=== PATIENT | female | born 1955 | race Caucasian/White ===

== ENCOUNTER 2022-12-10 14:03 | Inpatient (IN) | payer MEDICARE, MEDICAID ==
[~2022-12-10] VITALS: Ht 170.2 cm; Wt 89.7 kg
[2022-12-10] MEDS ORDERED: dexamethasone sod phosphate 10mg/ml inj IV STA (14:27)
[2022-12-10] MEDS ORDERED: ipratropium/albuterol 3ml nebule NEB ONE (14:30)
[2022-12-10] MEDS ORDERED: normal saline 1000ml 1,000 ML IV ONE (14:30)
[2022-12-10 15:09] VITALS: PULSE 102; PULSE 103; RESP 26; O2SAT 94; O2SAT 95
[2022-12-10 15:16] LABS: BASOPHILS # (AUTO) 0.1 X10'3 (0-0.2); BASOPHILS % (AUTO) 0.4 % (0-1); EOSINOPHILS % (AUTO) 0 % (0-6); HEMATOCRIT 38.9 % (35.0-45.0); HEMOGLOBIN 12.9 g/dl (12.0-16.0); LYMPHOCYTES # (AUTO) 1.5 X10'3 (1.1-4.8); LYMPHOCYTES % (AUTO) 9.1 % (21-51); MEAN CORPUSCULAR HEMOGLOBIN 30.8 PG (27.0-31.0); MEAN CORPUSCULAR HGB CONC 33.2 g/dL (33.0-36.5); MEAN CORPUSCULAR VOLUME 92.6 FL (78-98); MEAN PLATELET VOLUME 8.6 FL (7.4-10.4); MONOCYTES # (AUTO) 0.9 X10'3 (0-0.9); MONOCYTES % (AUTO) 5.5 % (2-12); NEUTROPHILS # (AUTO) 13.9 X10'3 (1.8-7.7); PLATELET COUNT 192 X10'3 (140-440); RED CELL DISTRIBUTION WIDTH 15.4 % (11.5-14.5); WHITE BLOOD COUNT 16.3 X10'3 (4.5-11.0)
--- NOTE | 2022-12-10 15:25 | NUR ---
Notified by lab that blood hemolyzed, attempted to redraw blood via IV unsuccesful. Lab notified and will come redraw.
--- NOTE | 2022-12-10 15:46 | NUR ---
US at bedside
--- NOTE | 2022-12-10 15:52 | NUR ---
lab at bedside for redraw.
[2022-12-10 16:10] LABS: BILIRUBIN,URINE NEGATIVE (Neg); CLARITY,URINE CLOUDY (Clear); COLOR,URINE STRAW (Yellow); GLUCOSE, URINE NEGATIVE (Neg); KETONES,URINE NEGATIVE (Neg); LEUKOCYTE ESTERASE ,URINE MODERATE (Neg); NITRITES, URINE POSITIVE (Neg); OCCULT BLOOD,URINE MODERATE (Neg); PROTEIN,URINE 30 mg/dl (Neg); UROBILINOGEN,URINE 0.2 E.U/dL (0.2-1.0)
[2022-12-10 16:16] LABS: ALANINE AMINOTRANSFERASE 15 U/L (12-78); ALBUMIN 2.9 G/DL (3.4-5.0); ALBUMIN/GLOBULIN RATIO 0.8 (1.1-1.5); ALKALINE PHOSPHATASE 52 IU/L (46-116); ANION GAP 10 (8-16); ASPARTATE AMINO TRANSFERASE 13 U/L (10-37); BILIRUBIN,TOTAL 0.5 MG/DL (0.1-1.0); BLOOD UREA NITROGEN 21 MG/DL (7-18); BUN/CREATININE RATIO 13.5 (10.0-20.0); CALCIUM 8.9 MG/DL (8.5-10.1); CHLORIDE 104 MMOL/L (99-107); CREATININE 1.55 MG/DL (0.40-0.90); GLUCOSE 141 MG/DL (70-104); SODIUM 138 MMOL/L (135-145); TOTAL CARBON DIOXIDE 24.3 MMOL/L (24-32); TOTAL PROTEIN 6.4 G/DL (6.4-8.2); eCRCL 33 ML/MIN; eGFR 33 ML/MIN
[2022-12-10 16:17] LABS: UA COLLECTION TYPE CLN CATCH MIDSTREAM
[2022-12-10 16:19] LABS: BACTERIA,URINE 4+ /HPF (Neg); RBC,URINE TNTC /HPF (0-2); SQUAMOUS EPITHELIAL CELL,UR MODERATE /LPF (FEW); WBC,URINE TNTC /HPF (0-4)
[2022-12-10 16:20] LABS: TRANSITIONAL EPI CELLS,URINE FEW /HPF
[2022-12-10 16:24] LABS: PRO BRAIN NATRIURETIC PEPTIDE 3673 PG/ML (0-125)
[2022-12-10] MEDS ORDERED: potassium Cl 40MEQ/1/2NS 520ml 520 ML IV PRN (16:50)
[2022-12-10] MEDS ORDERED: potassium Cl 20 mEq SR tablet PO PRN ×2 (16:50)
[2022-12-10] MEDS ORDERED: morphine 2 MG/ML inj. syringe IV PRN (16:50)
[2022-12-10] MEDS ORDERED: cefepime 2g/NS 100ml ADVANTAGE 100 ML IV SCH ×2 (16:50→17:15)
[2022-12-10] MEDS ORDERED: insulin Lispro (HumaLOG) vial - multi-dose SQ SCH (16:50)
[2022-12-10] MEDS ORDERED: magnesium Cl slow-release 64mg tablet PO PRN (16:50)
[2022-12-10] MEDS ORDERED: DEXTROSE 15 GM of carb/4 tabs (each vial/BOTTLE has 4 tablets) PO PRN ×2 (16:50)
[2022-12-10] MEDS ORDERED: mag hydrox/Alum hydrox/simeth 30ml oral suspension PO PRN (16:50)
[2022-12-10] MEDS ORDERED: dextrose 50%-water 50ml dispensing syringe IV PRN ×2 (16:50)
[2022-12-10] MEDS ORDERED: magnesium 2GM in 50ml NS 50 ML IV PRN (16:50)
[2022-12-10] MEDS ORDERED: acetaminophen 325mg tablet PO PRN (16:50)
[2022-12-10] MEDS ORDERED: glucagon, human recombinant 1mg kit SUBCUT PRN (16:50)
[2022-12-10] MEDS ORDERED: MESSAGE TO PHARMACY PO ONE (16:50)
[2022-12-10] MEDS ORDERED: magnesium 4gm in 100ml NS 100 ML IV PRN (16:50)
[2022-12-10] MEDS ORDERED: OXYB10TA30 PO (17:09)
[2022-12-10] MEDS ORDERED: LEVO25TA7 PO (17:09)
[2022-12-10] MEDS ORDERED: DOCU-391 PO (17:09)
[2022-12-10] MEDS ORDERED: FLUT16SP16 (17:09)
[2022-12-10] MEDS ORDERED: POTA8TAB69 PO (17:09)
[2022-12-10] MEDS ORDERED: CYCL1DRO2 EACHEYE (17:09)
[2022-12-10] MEDS ORDERED: FURO40TA4 PO (17:09)
[2022-12-10] MEDS ORDERED: FLO0.4C PO (17:09)
[2022-12-10] MEDS ORDERED: MELO-102 PO (17:09)
[2022-12-10] MEDS ORDERED: ALLO300T8 PO (17:09)
[2022-12-10] MEDS ORDERED: FAMO20TA8 PO (17:09)
[2022-12-10] MEDS ORDERED: DIPH25CA83 PO (17:09)
[2022-12-10] MEDS ORDERED: MONT-40 PO (17:09)
[2022-12-10] MEDS ORDERED: PANT40TA54 PO (17:09)
[2022-12-10] MEDS ORDERED: ROSU10TA28 PO (17:09)
[2022-12-10] MEDS ORDERED: DILT-88 PO (17:09)
[2022-12-10] MEDS ORDERED: BACL10TA2 PO (17:09)
[2022-12-10] MEDS ORDERED: ASPI-1397 PO (17:09)
[2022-12-10] MEDS: normal saline 1000ml 1,000 ML IV SCH (17:28)
[2022-12-10 17:41] LABS: MAGNESIUM 2.1 MG/DL (1.5-2.4); POTASSIUM 3.9 MMOL/L (3.5-5.1)
[2022-12-10] MEDS ORDERED: diphenhydrAMINE 25mg capsule PO PRN (17:50)
[2022-12-10 17:54] LABS: FREE T4 (FREE THYROXINE) 0.99 NG/DL (0.73-1.40); THYROID STIMULATING HORMONE 0.92 ulU/ml (0.34-4.50)
[2022-12-10 17:57] LABS: HEMOGLOBIN A1C 6.2 % (4.5-6.2)
[2022-12-10] MEDS: furosemide 40mg tablet PO SCH (18:11)
[2022-12-10] MEDS: tamsulosin 0.4mg capsule PO SCH (18:12)
--- NOTE | 2022-12-10 19:38 | NUR ---
PT TESTED AT TRANSFERRING HOSPITAL AND RESULTED NEG FOR FLU AND COVID, TESTS NOT REPEATED HERE
[2022-12-10] MEDS: heparin, porcine 5000 units/ml vial SQ SCH (20:00)
[2022-12-10] MEDS: cycloSPORINE 0.05% ophthalmic emulsion EACHEYE SCH (20:00)
[2022-12-10] MEDS: K and/or MAG REPLACEMENT MC SCH (20:00)
[2022-12-10 20:27] VITALS: PULSE 91; RESP 28; O2SAT 93
[2022-12-10] MEDS: oxybutynin 5mg tablet PO SCH (20:58)
[2022-12-10] MEDS: docusate sod 100mg capsule PO SCH (20:58)
[2022-12-10] MEDS ORDERED: insulin glargine (Lantus) pen - multi-dose SQ SCH (21:00)
[2022-12-10] MEDS ORDERED: tamsulosin 0.4mg capsule PO SCH (21:00)
[2022-12-10 21:45] VITALS: BP 121/68; PULSE 84; RESP 17; TEMP 97.7; O2SAT 94
[2022-12-10 22:00] VITALS: BP 121/67; PULSE 83; RESP 18; TEMP 98.3; O2SAT 93
[2022-12-11] VITALS (27 sets, daily range): BP systolic 98–147; BP diastolic 52–93; PULSE 71–125; RESP 14–29; TEMP 97.5–98.3; O2SAT 89–96
[2022-12-11] MEDS: diltiazem CD 120mg capsule (once-daily) PO SCH ×3 (00:31→21:07)
[2022-12-11] MEDS: cefepime 2g/NS 100ml ADVANTAGE 100 ML IV SCH ×3 (00:31→21:08)
[2022-12-11] MEDS: ROSUVASTATIN CALCIUM 5 MG TABLET PO SCH ×2 (00:32→21:06)
--- NOTE | 2022-12-11 00:39 | NUR ---
Report received from Brandi HOLLINGSWORTH. Pt arrived to unit at 2140. Pt stable at time of transfer. Pt walked from [facility] to bed, stable on feet, stand by assist. Tele monitor placed, vital signs stable, O2 via nasal canula running at 2L, NS running at 150 mL/hr, MRSA swab collected. All needs met at this time.
[2022-12-11] MEDS: normal saline 1000ml 1,000 ML IV SCH ×3 (05:23→23:40)
--- NOTE | 2022-12-11 06:43 | NUR ---
Problems reprioritized. Patient report given, questions answered & plan of care reviewed with Frances HOLLINGSWORTH. Pt stable at change of shift
[2022-12-11] MEDS: heparin, porcine 5000 units/ml vial SQ SCH ×2 (06:46→21:08)
[2022-12-11] MEDS: aspirin 81mg, enteric-coated 1 TAB TABLET.DR PO SCH (06:47)
--- NOTE | 2022-12-11 06:54 | NUR ---
Patient in room PCU 3012. I have received report from DAYRON HOLLINGSWORTH and had the opportunity to ask questions and assume patient care.
[2022-12-11 07:01] LABS: BASOPHILS % (AUTO) 0.1 % (0-1); EOSINOPHILS % (AUTO) 0 % (0-6); HEMATOCRIT 34.8 % (35.0-45.0); HEMOGLOBIN 11.5 g/dl (12.0-16.0); LYMPHOCYTES # (AUTO) 1.1 X10'3 (1.1-4.8); LYMPHOCYTES % (AUTO) 7.3 % (21-51); MEAN CORPUSCULAR HEMOGLOBIN 31.1 PG (27.0-31.0); MEAN CORPUSCULAR VOLUME 94.3 FL (78-98); MEAN PLATELET VOLUME 8.4 FL (7.4-10.4); MONOCYTES # (AUTO) 0.6 X10'3 (0-0.9); MONOCYTES % (AUTO) 4.2 % (2-12); NEUTROPHILS # (AUTO) 13.7 X10'3 (1.8-7.7); NEUTROPHILS % (AUTO) 88.4 % (42-75); PLATELET COUNT 193 X10'3 (140-440); RED BLOOD COUNT 3.69 X10'6 (4.20-5.60); RED CELL DISTRIBUTION WIDTH 15.5 % (11.5-14.5); WHITE BLOOD COUNT 15.5 X10'3 (4.5-11.0)
[2022-12-11 07:09] LABS: ALANINE AMINOTRANSFERASE 13 U/L (12-78); ALBUMIN 2.7 G/DL (3.4-5.0); ALBUMIN/GLOBULIN RATIO 0.7 (1.1-1.5); ALKALINE PHOSPHATASE 50 IU/L (46-116); ANION GAP 10 (8-16); ASPARTATE AMINO TRANSFERASE 10 U/L (10-37); BILIRUBIN,TOTAL 0.3 MG/DL (0.1-1.0); BLOOD UREA NITROGEN 23 MG/DL (7-18); BUN/CREATININE RATIO 15.6 (10.0-20.0); CALCIUM 8.7 MG/DL (8.5-10.1); CHLORIDE 106 MMOL/L (99-107); CHOL/HDL RATIO 2.3 (0.00-4.99); CHOLESTEROL 126 MG/DL (0-200); CREATININE 1.47 MG/DL (0.40-0.90); GLUCOSE 147 MG/DL (70-104); HDL CHOLESTEROL 55 MG/DL (35-60); LDL CHOLESTEROL 43 MG/DL (50-100); MAGNESIUM 2.3 MG/DL (1.5-2.4); PHOSPHORUS 3.2 MG/DL (2.3-4.5); POTASSIUM 4.1 MMOL/L (3.5-5.1); SODIUM 139 MMOL/L (135-145); TOTAL CARBON DIOXIDE 23.5 MMOL/L (24-32); TOTAL PROTEIN 6.4 G/DL (6.4-8.2); TRIGLYCERIDES 82 MG/DL (20-135); eCRCL 35 ML/MIN; eGFR 35 ML/MIN
[2022-12-11] MEDS: furosemide 40mg tablet PO SCH (08:00)
[2022-12-11] MEDS ORDERED: allopurinol 300 MG tablet PO SCH (08:00)
[2022-12-11] MEDS: K and/or MAG REPLACEMENT MC SCH ×2 (08:00→20:00)
[2022-12-11] MEDS: HYDROcodone/acetaminophen 10/325mg tab PO PRN (09:19)
[2022-12-11] MEDS: levoTHYROXINE 25mcg tablet PO SCH (09:20)
[2022-12-11] MEDS: tamsulosin 0.4mg capsule PO SCH (09:20)
[2022-12-11] MEDS: docusate sod 100mg capsule PO SCH ×2 (09:21→21:06)
[2022-12-11] MEDS: oxybutynin 5mg tablet PO SCH ×2 (09:21→21:07)
[2022-12-11] MEDS: pantoprazole 40mg Tablet.DR PO SCH (09:22)
[2022-12-11] MEDS: cycloSPORINE 0.05% ophthalmic emulsion EACHEYE SCH ×2 (09:23→21:54)
[2022-12-11] MEDS: fluticasone nasal spray 16GM bottle NS SCH (09:24)
--- NOTE | 2022-12-11 11:01 | NUR ---
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 Pt advanced to a heart healthy diet last night; pending PO intake. No BM yet this admit receiving routine colace per EMR. Will continue to monitor and make recommendations as appropriate. Recommendations: 1.continue heart heathy diet; monitor need to liberalize to regular as medically appropriate 2.monitor PO intake trend and need for additionally protein/ONS 3.routine bowel care 4.scaled wts;subsequent weekly scaled wt Addendum: 12/11/22 at [address] Amended: Links added.
--- NOTE | 2022-12-11 15:53 | NUR ---
REPORT CALLED TO TYLER HOLLINGSWORTH IN RECOVERY.
[2022-12-11] MEDS ORDERED: sevoflurane 250ml liquid IH ONE (16:35)
[2022-12-11] MEDS ORDERED: fentaNYL/PF 50MCG/1 ML 2ML syringe ONE (16:38)
[2022-12-11] MEDS ORDERED: rocuronium 10mg/ml inj IV ONE (16:45)
[2022-12-11] MEDS ORDERED: propofol inj 20 ML IV ONE (16:45)
[2022-12-11] MEDS ORDERED: LIDOcaine 2% (20mg/ml) 5ml vial ONE (16:45)
[2022-12-11] MEDS ORDERED: ondansetron/PF 4mg/2ml inj ONE (17:09)
[2022-12-11] MEDS ORDERED: dexamethasone sod phosphate 4mg/ml inj. ONE (17:09)
[2022-12-11] MEDS ORDERED: ePHEDrine 50MG/ML INJ. ONE (17:09)
[2022-12-11] MEDS ORDERED: sugammadex 200mg/2ml injection IV ONE (17:20)
--- NOTE | 2022-12-11 17:34 | NUR ---
Received from OR via HOSPITAL BED TO RR 7, accompanied by Anesthesiologist and report given by Anesthesiologist. PT PRESENTS ON 10L VIA MASK, VSS. PT DENIES PAIN, NO S/S OF DISTRESS OR BLEEDING. NS RUNNING THRU PIV. PT IS ABLE TO MAKE HER NEEDS KNOWN.
[2022-12-11] MEDS ORDERED: normal saline 1000ml 1,000 ML IV ONE (17:40)
[2022-12-11] MEDS ORDERED: fentaNYL/PF 50MCG/1 ML 2ML syringe IV PRN ×2 (17:40)
[2022-12-11] MEDS ORDERED: HYDROmorphone/PF 0.2 MG/ML SYRINGE IV PRN ×2 (17:40)
[2022-12-11] MEDS ORDERED: ondansetron/PF 4mg/2ml inj IV PRN ×2 (17:40)
[2022-12-11] MEDS ORDERED: ipratropium/albuterol 3ml nebule NEB ONE (17:45)
--- NOTE | 2022-12-11 18:00 | NUR ---
PATIENT HAS THE SHOVERS, APPLIED VALE TABOR
--- NOTE | 2022-12-11 18:11 | NUR ---
Problems reprioritized. Patient report given, questions answered & plan of care reviewed with DAYRON HOLLINGSWORTH.
--- NOTE | 2022-12-11 18:55 | NUR ---
ORDER RECEIVED FROM DR PERLA VIA PHONE FOR 25MG DEMEROL FOR SHIVERS IVP X 1. OK TO GIVE COMPAZINE 2.5MG Q5MIN X 2 DOSES NEEDED FOR N/V. KEEP SPO2 ABOVE 90%. ADVISED OF HR 110-120'S: SHOULD RESOLVE WITH LESS SHIVERS, NO NEW ORDERS AT THIS TIME.
[2022-12-11] MEDS ORDERED: proCHLORperazine 10 MG/2 ml inj IV PRN (19:00)
[2022-12-11] MEDS ORDERED: meperidine/PF 25mg/ml syringe IV ONE (19:00)
--- NOTE | 2022-12-11 19:19 | NUR ---
Report received from Recovery. Pt is stable and procedure went well with no complications. Pt vitals are stable with mild tachycardia, per RN, is aware and says it should come down when she stops shivering so much. No signs of bleeding at this time. Pt will come up to floor shortly.
--- NOTE | 2022-12-11 19:34 | NUR ---
PT STABLE FOR TRANSFER PER MD ORDERS. PTS NAUSEA IS GETTING BETTER AND SHE DOES NOT WANT ANY MORE MEDICATIONS ON BOARD. HER SHIVERING IS BETTER AND SHE STATES SHE IS READY TO TRANSFER BACK TO HER ROOM. DENTURES ARE IN THE HOSPITAL BED WITH HER. THERE IS NO SIGNS OR SYMPTOMS OF BLEEDING OR DISTRESS. SHE DENIES PAIN. PT IS HOOKED UP TO POST OP VITALS AND PRIMARY NURSE IS IN ROOM. PT HAS CALL LIGHT, BLL, 2 RAILS UP. Addendum: 12/11/22 at 1999 by Regi Meek RN REPORT GIVEN TO PRIMARY NURSE DAYRON, ALL QUESTIONS, COMMENTS, AND CONCERNS ANSWERED AT THIS TIME.
--- NOTE | 2022-12-11 20:40 | NUR ---
Pt arrived to unit at 1944. Pt stable at transfer. Post op vitals started
[2022-12-12] VITALS (9 sets, daily range): BP systolic 97–110; BP diastolic 58–66; PULSE 77–103; RESP 16–20; TEMP 97.3–97.7; O2SAT 90–96
[2022-12-12] MEDS: ondansetron/PF 4mg/2ml inj IV PRN ×2 (05:28→19:12)
--- NOTE | 2022-12-12 06:32 | NUR ---
Problems reprioritized. Patient report given, questions answered & plan of care reviewed with Frances HOLLINGSWORTH. Pt stable at transfer of care
--- NOTE | 2022-12-12 06:39 | NUR ---
Patient in room PCU 3012. I have received report from erica fontana and had the opportunity to ask questions and assume patient care.
[2022-12-12] MEDS: allopurinol 100mg tablet PO SCH (07:27)
[2022-12-12] MEDS: aspirin 81mg, enteric-coated 1 TAB TABLET.DR PO SCH (07:27)
[2022-12-12] MEDS: pantoprazole 40mg Tablet.DR PO SCH (07:27)
[2022-12-12] MEDS: levoTHYROXINE 25mcg tablet PO SCH (07:27)
[2022-12-12] MEDS: docusate sod 100mg capsule PO SCH ×2 (07:27→20:08)
[2022-12-12] MEDS: oxybutynin 5mg tablet PO SCH ×2 (07:27→20:08)
[2022-12-12] MEDS: tamsulosin 0.4mg capsule PO SCH (07:28)
[2022-12-12] MEDS: heparin, porcine 5000 units/ml vial SQ SCH ×2 (07:28→20:09)
[2022-12-12] MEDS: cefepime 2g/NS 100ml ADVANTAGE 100 ML IV SCH (07:29)
[2022-12-12] MEDS: fluticasone nasal spray 16GM bottle NS SCH (07:30)
[2022-12-12] MEDS: K and/or MAG REPLACEMENT MC SCH ×2 (08:00→20:00)
[2022-12-12] MEDS: diltiazem CD 120mg capsule (once-daily) PO SCH ×2 (08:00→20:08)
[2022-12-12 08:51] LABS: BASOPHILS % (AUTO) 0.1 % (0-1); EOSINOPHILS # (AUTO) 0.1 X10'3 (0-0.9); EOSINOPHILS % (AUTO) 0.3 % (0-6); HEMATOCRIT 30.6 % (35.0-45.0); LYMPHOCYTES # (AUTO) 0.5 X10'3 (1.1-4.8); LYMPHOCYTES % (AUTO) 1.8 % (21-51); MEAN CORPUSCULAR HEMOGLOBIN 30.4 PG (27.0-31.0); MEAN CORPUSCULAR HGB CONC 32.6 g/dL (33.0-36.5); MEAN CORPUSCULAR VOLUME 93.4 FL (78-98); MEAN PLATELET VOLUME 8.7 FL (7.4-10.4); MONOCYTES # (AUTO) 0.9 X10'3 (0-0.9); MONOCYTES % (AUTO) 2.9 % (2-12); NEUTROPHILS # (AUTO) 28.2 X10'3 (1.8-7.7); NEUTROPHILS % (AUTO) 94.9 % (42-75); PLATELET COUNT 167 X10'3 (140-440); RED BLOOD COUNT 3.27 X10'6 (4.20-5.60); RED CELL DISTRIBUTION WIDTH 15.8 % (11.5-14.5)
[2022-12-12 08:56] LABS: WHITE BLOOD COUNT 29.7 X10'3 (4.5-11.0)
--- NOTE | 2022-12-12 08:57 | NUR ---
REPORTED CRITICAL WBC VALUE TO PRIMARY RN
[2022-12-12 09:04] LABS: ALANINE AMINOTRANSFERASE 17 U/L (12-78); ALBUMIN 2.3 G/DL (3.4-5.0); ALBUMIN/GLOBULIN RATIO 0.7 (1.1-1.5); ALKALINE PHOSPHATASE 52 IU/L (46-116); ANION GAP 10 (8-16); ASPARTATE AMINO TRANSFERASE 12 U/L (10-37); BILIRUBIN,TOTAL 0.4 MG/DL (0.1-1.0); BLOOD UREA NITROGEN 27 MG/DL (7-18); BUN/CREATININE RATIO 15.2 (10.0-20.0); CALCIUM 7.8 MG/DL (8.5-10.1); CHLORIDE 105 MMOL/L (99-107); CREATININE 1.78 MG/DL (0.40-0.90); GLUCOSE 267 MG/DL (70-104); MAGNESIUM 1.9 MG/DL (1.5-2.4); PHOSPHORUS 3.2 MG/DL (2.3-4.5); POTASSIUM 4.1 MMOL/L (3.5-5.1); SODIUM 135 MMOL/L (135-145); TOTAL CARBON DIOXIDE 20.5 MMOL/L (24-32); TOTAL PROTEIN 5.8 G/DL (6.4-8.2); eCRCL 29 ML/MIN; eGFR 28 ML/MIN
--- NOTE | 2022-12-12 09:11 | NUR ---
PAGER ID: [phone] MESSAGE: [id number]- MADDY CHRIS. Critical Lab value: WBC 29.7. Amanda U [id number].
[2022-12-12 09:25] LABS: BURR CELLS FEW; ELLIPTOCYTES FEW; PLATELET ESTIMATE NORMAL; TEAR DROP CELLS FEW; TOTAL CELLS COUNTED 100
--- NOTE | 2022-12-12 09:55 | NUR ---
notified dr groves re: bp 97/58. below parameters to give so it was held this am. he states if map is above 60 to give lasix d/t pt feeling sob, but cont to hold cardizem.
[2022-12-12] MEDS: furosemide 40mg tablet PO SCH (10:04)
[2022-12-12] MEDS: cycloSPORINE 0.05% ophthalmic emulsion EACHEYE SCH ×2 (10:04→20:08)
--- NOTE | 2022-12-12 15:34 | NUR ---
Notified Dr. Gutiérrez patient's blood cultures taken 12/10, after 48 hours came out gram positive cocci in cluster from aerobic bottle.
[2022-12-12] MEDS: magnesium hydroxide 30ml (MOM) UD suspension PO PRN (17:21)
--- NOTE | 2022-12-12 18:17 | NUR ---
Problems reprioritized. Patient report given, questions answered & plan of care reviewed with DARRICK Vela.
[2022-12-12] MEDS: ROSUVASTATIN CALCIUM 5 MG TABLET PO SCH (20:09)
[2022-12-12] MEDS: furosemide 40mg/4ml inj IV SCH (20:12)
--- NOTE | 2022-12-12 20:40 | NUR ---
patient with unequal pupillary response upon further questioning patient states history of retinal detachment and ophthalmic surgery to R eye Addendum: 12/12/22 at 2048 by Trever MARTINES Amended: Links added.
--- NOTE | 2022-12-12 22:00 | NUR ---
MD called about pt hematuria and prophylactic heparin. MD okayed continuing prophylactic subcutaneous heparin despite hematuria post Lithotripsy and stent placement.
--- NOTE | 2022-12-12 22:40 | NUR ---
Student documentation: I have reviewed interventions, assessments performed and documented by Trever POWELL [facility].
--- NOTE | 2022-12-12 23:20 | NUR ---
Student documentation: I have reviewed and agree with all interventions, assessments performed and documented by Trever Adams.
--- NOTE | 2022-12-12 23:20 | NUR ---
Student Medication Administration: For this medication-pass time frame, all medication were reviewed, dispensed, administered and documented per hospital policy by Trever Adams.
[2022-12-13] VITALS (8 sets, daily range): BP systolic 107–126; BP diastolic 50–74; PULSE 84–98; RESP 12–20; TEMP 97.3–99.1; O2SAT 90–94
[2022-12-13] MEDS: HYDROcodone/acetaminophen 10/325mg tab PO PRN ×3 (05:44→22:02)
--- NOTE | 2022-12-13 06:35 | NUR ---
Problems reprioritized. Patient report given, questions answered & plan of care reviewed with Prema HOLLINGSWORTH. Pt stable at transfer of care
--- NOTE | 2022-12-13 06:35 | NUR ---
Patient in room PCU 3012. I have received report from DARRICK PADGETT, and had the opportunity to ask questions and assume patient care.
[2022-12-13] MEDS ORDERED: cefepime 1GM/NS ADD-VANTAGE 100 ML IV SCH (08:00)
[2022-12-13] MEDS: K and/or MAG REPLACEMENT MC SCH ×2 (08:00→20:00)
[2022-12-13] MEDS: fluticasone nasal spray 16GM bottle NS SCH (08:01)
[2022-12-13] MEDS: CefTRIAXone/D5W-Rocephin 1gm 50 ML IV SCH (08:47)
[2022-12-13] MEDS: diltiazem CD 120mg capsule (once-daily) PO SCH ×2 (08:50→20:00)
[2022-12-13] MEDS: levoTHYROXINE 25mcg tablet PO SCH (08:50)
[2022-12-13] MEDS: aspirin 81mg, enteric-coated 1 TAB TABLET.DR PO SCH (08:51)
[2022-12-13] MEDS: allopurinol 100mg tablet PO SCH (08:51)
[2022-12-13] MEDS: docusate sod 100mg capsule PO SCH ×2 (08:51→20:00)
[2022-12-13] MEDS: tamsulosin 0.4mg capsule PO SCH (08:52)
[2022-12-13] MEDS: oxybutynin 5mg tablet PO SCH ×2 (08:52→20:00)
[2022-12-13] MEDS: furosemide 40mg/4ml inj IV SCH (08:52)
[2022-12-13] MEDS: cycloSPORINE 0.05% ophthalmic emulsion EACHEYE SCH ×2 (08:57→20:00)
[2022-12-13 08:58] LABS: BASOPHILS % (AUTO) 0.1 % (0-1); EOSINOPHILS # (AUTO) 0.2 X10'3 (0-0.9); EOSINOPHILS % (AUTO) 0.7 % (0-6); HEMATOCRIT 30.2 % (35.0-45.0); HEMOGLOBIN 9.9 g/dl (12.0-16.0); LYMPHOCYTES % (AUTO) 4.3 % (21-51); MEAN CORPUSCULAR HEMOGLOBIN 30.5 PG (27.0-31.0); MEAN CORPUSCULAR HGB CONC 32.8 g/dL (33.0-36.5); MEAN PLATELET VOLUME 9.1 FL (7.4-10.4); MONOCYTES # (AUTO) 0.8 X10'3 (0-0.9); MONOCYTES % (AUTO) 3.7 % (2-12); NEUTROPHILS % (AUTO) 91.2 % (42-75); PLATELET COUNT 177 X10'3 (140-440); RED BLOOD COUNT 3.25 X10'6 (4.20-5.60); RED CELL DISTRIBUTION WIDTH 15.4 % (11.5-14.5)
[2022-12-13 09:02] LABS: BASOPHILS # (AUTO) 0.1 X10'3 (0-0.2); BASOPHILS % (AUTO) 0.3 % (0-1); EOSINOPHILS # (AUTO) 0.2 X10'3 (0-0.9); EOSINOPHILS % (AUTO) 0.7 % (0-6); HEMATOCRIT 30.3 % (35.0-45.0); HEMOGLOBIN 9.9 g/dl (12.0-16.0); LYMPHOCYTES % (AUTO) 4.4 % (21-51); MEAN CORPUSCULAR HEMOGLOBIN 30.2 PG (27.0-31.0); MEAN CORPUSCULAR HGB CONC 32.9 g/dL (33.0-36.5); MEAN PLATELET VOLUME 9.2 FL (7.4-10.4); MONOCYTES # (AUTO) 0.8 X10'3 (0-0.9); MONOCYTES % (AUTO) 3.5 % (2-12); NEUTROPHILS # (AUTO) 21.3 X10'3 (1.8-7.7); NEUTROPHILS % (AUTO) 91.1 % (42-75); PLATELET COUNT 172 X10'3 (140-440); RED BLOOD COUNT 3.29 X10'6 (4.20-5.60); RED CELL DISTRIBUTION WIDTH 15.2 % (11.5-14.5); WHITE BLOOD COUNT 23.4 X10'3 (4.5-11.0)
[2022-12-13] MEDS: pantoprazole 40mg Tablet.DR PO SCH (09:03)
[2022-12-13] MEDS: heparin, porcine 5000 units/ml vial SQ SCH ×2 (09:04→20:00)
[2022-12-13 09:16] LABS: ALBUMIN 2.4 G/DL (3.4-5.0); ANION GAP 9 (8-16); BLOOD UREA NITROGEN 33 MG/DL (7-18); BUN/CREATININE RATIO 20.9 (10.0-20.0); CALCIUM 8.4 MG/DL (8.5-10.1); CHLORIDE 103 MMOL/L (99-107); CREATININE 1.58 MG/DL (0.40-0.90); GLUCOSE 127 MG/DL (70-104); POTASSIUM 3.6 MMOL/L (3.5-5.1); SODIUM 136 MMOL/L (135-145); TOTAL CARBON DIOXIDE 23.8 MMOL/L (24-32); eCRCL 33 ML/MIN; eGFR 32 ML/MIN
[2022-12-13 09:26] LABS: ALANINE AMINOTRANSFERASE 16 U/L (12-78); ALBUMIN 2.3 G/DL (3.4-5.0); ALBUMIN/GLOBULIN RATIO 0.6 (1.1-1.5); ALKALINE PHOSPHATASE 111 IU/L (46-116); ANION GAP 8 (8-16); ASPARTATE AMINO TRANSFERASE 19 U/L (10-37); BILIRUBIN,TOTAL 0.3 MG/DL (0.1-1.0); BLOOD UREA NITROGEN 32 MG/DL (7-18); BUN/CREATININE RATIO 19.9 (10.0-20.0); CALCIUM 8.3 MG/DL (8.5-10.1); CHLORIDE 103 MMOL/L (99-107); CREATININE 1.61 MG/DL (0.40-0.90); GLUCOSE 123 MG/DL (70-104); MAGNESIUM 2.2 MG/DL (1.5-2.4); PHOSPHORUS 1.3 MG/DL (2.3-4.5); POTASSIUM 3.6 MMOL/L (3.5-5.1); SODIUM 135 MMOL/L (135-145); TOTAL CARBON DIOXIDE 24.2 MMOL/L (24-32); TOTAL PROTEIN 5.9 G/DL (6.4-8.2); eCRCL 32 ML/MIN; eGFR 32 ML/MIN
--- NOTE | 2022-12-13 14:47 | NUR ---
F/u 12/13: Pt continues on a heart healthy diet was prior NPO for left ureteroscopy stone extraction with major laser procedure on 12/11 per EMR. Average PO intake of 60% x 4 meals this admit which met ~82% of estimated kcal needs and ~66% of estimated protein needs however appears to be improving since last two meals were 75-100%. If PO intake declines, pt may benefit from an ONS. LBM on 12/09 though received MoM on 12/12. Recommend prunes and prune juice for dinner; communicated with dietary. Will continue to monitor. Addendum: 12/13/22 at [address] Amended: Links added.
--- NOTE | 2022-12-13 16:14 | NUR ---
O2 Sat at rest on room air:__88_% If below 89%: Recovery O2 Sat at rest on _3__LPM:_90__%:___% via NC (mask/nasal cannula, etc..) No further documentation is necessary. If O2 Sat did not drop below 89% on room air,ambulate patient on room air. O2 Sat while ambulating on room air:___% Recovery O2 Sat while ambulating on ___LPM:___% No further documentation is necessary. If patient does not drop below 89% while ambulating, he/she does not qualify for home O2.
--- NOTE | 2022-12-13 18:47 | NUR ---
Problems reprioritized. Patient report given, questions answered & plan of care reviewed with DARRICK VILLALOBOS.
[2022-12-13] MEDS: furosemide 20 MG/2 ML vial IV SCH (20:00)
[2022-12-13] MEDS: ROSUVASTATIN CALCIUM 5 MG TABLET PO SCH (21:32)
[2022-12-14] VITALS (8 sets, daily range): BP systolic 111–139; BP diastolic 59–84; PULSE 80–95; RESP 16–25; TEMP 97.7–99.7; O2SAT 3–96
[2022-12-14] MEDS: normal saline 500ml IV soln 500 ML IV SCH ×3 (03:00→15:30)
--- NOTE | 2022-12-14 06:27 | NUR ---
Patient report given, questions answered & plan of care reviewed with DARRICK Lloyd
--- NOTE | 2022-12-14 06:39 | NUR ---
Patient in room PCU 3012. I have received report from DARRICK VILLALOBOS, and had the opportunity to ask questions and assume patient care.
[2022-12-14] MEDS: K and/or MAG REPLACEMENT MC SCH ×2 (08:00→20:00)
[2022-12-14 08:08] LABS: BASOPHILS # (AUTO) 0.1 X10'3 (0-0.2); BASOPHILS % (AUTO) 0.3 % (0-1); EOSINOPHILS # (AUTO) 0.2 X10'3 (0-0.9); EOSINOPHILS % (AUTO) 1.2 % (0-6); HEMATOCRIT 31.4 % (35.0-45.0); HEMOGLOBIN 10.6 g/dl (12.0-16.0); LYMPHOCYTES # (AUTO) 1.5 X10'3 (1.1-4.8); LYMPHOCYTES % (AUTO) 7.3 % (21-51); MEAN CORPUSCULAR HGB CONC 33.7 g/dL (33.0-36.5); MEAN CORPUSCULAR VOLUME 91.9 FL (78-98); MEAN PLATELET VOLUME 8.6 FL (7.4-10.4); MONOCYTES # (AUTO) 0.8 X10'3 (0-0.9); MONOCYTES % (AUTO) 4.1 % (2-12); NEUTROPHILS # (AUTO) 17.5 X10'3 (1.8-7.7); NEUTROPHILS % (AUTO) 87.1 % (42-75); PLATELET COUNT 191 X10'3 (140-440); RED BLOOD COUNT 3.42 X10'6 (4.20-5.60); RED CELL DISTRIBUTION WIDTH 14.9 % (11.5-14.5); WHITE BLOOD COUNT 20.1 X10'3 (4.5-11.0)
[2022-12-14 08:46] LABS: ALANINE AMINOTRANSFERASE 21 U/L (12-78); ALBUMIN 2.5 G/DL (3.4-5.0); ALBUMIN/GLOBULIN RATIO 0.7 (1.1-1.5); ALKALINE PHOSPHATASE 72 IU/L (46-116); ANION GAP 7 (8-16); ASPARTATE AMINO TRANSFERASE 14 U/L (10-37); BILIRUBIN,TOTAL 0.3 MG/DL (0.1-1.0); BLOOD UREA NITROGEN 25 MG/DL (7-18); BUN/CREATININE RATIO 17.2 (10.0-20.0); CALCIUM 8.8 MG/DL (8.5-10.1); CHLORIDE 102 MMOL/L (99-107); CREATININE 1.45 MG/DL (0.40-0.90); GLUCOSE 122 MG/DL (70-104); MAGNESIUM 2.2 MG/DL (1.5-2.4); PHOSPHORUS 2.3 MG/DL (2.3-4.5); POTASSIUM 3.7 MMOL/L (3.5-5.1); SODIUM 139 MMOL/L (135-145); TOTAL CARBON DIOXIDE 30.4 MMOL/L (24-32); TOTAL PROTEIN 6.3 G/DL (6.4-8.2); eCRCL 36 ML/MIN; eGFR 36 ML/MIN
[2022-12-14] MEDS: CefTRIAXone/D5W-Rocephin 1gm 50 ML IV SCH (08:49)
[2022-12-14] MEDS: fluticasone nasal spray 16GM bottle NS SCH (08:53)
[2022-12-14] MEDS: cycloSPORINE 0.05% ophthalmic emulsion EACHEYE SCH ×2 (08:54→20:04)
[2022-12-14 08:57] LABS: TOTAL CELLS COUNTED 100
[2022-12-14 08:58] LABS: PLATELET ESTIMATE NORMAL
[2022-12-14] MEDS: furosemide 20 MG/2 ML vial IV SCH ×2 (08:58→19:59)
[2022-12-14 08:59] LABS: BURR CELLS 1+; ELLIPTOCYTES FEW
[2022-12-14] MEDS: allopurinol 100mg tablet PO SCH (09:03)
[2022-12-14] MEDS: oxybutynin 5mg tablet PO SCH ×2 (09:03→20:14)
[2022-12-14] MEDS: aspirin 81mg, enteric-coated 1 TAB TABLET.DR PO SCH (09:03)
[2022-12-14] MEDS: docusate sod 100mg capsule PO SCH ×2 (09:03→20:09)
[2022-12-14] MEDS: diltiazem CD 120mg capsule (once-daily) PO SCH ×2 (09:03→20:09)
[2022-12-14] MEDS: levoTHYROXINE 25mcg tablet PO SCH (09:03)
[2022-12-14] MEDS: tamsulosin 0.4mg capsule PO SCH (09:03)
[2022-12-14] MEDS: heparin, porcine 5000 units/ml vial SQ SCH ×2 (09:04→20:10)
[2022-12-14] MEDS ORDERED: LidoCAINE 2% Topical Jelly 11mL syringe TOP ONE ×2 (10:50)
--- NOTE | 2022-12-14 11:28 | NUR ---
FC, FR 18, PLACED.
--- NOTE | 2022-12-14 12:27 | NUR ---
CONCERNED ABOUT THE PT'S SOMNOLENCE, THIS NURSE PHONED THE PT'S SISTER BEFORE DISCHARGE. THE PT LIVES WITH HER SISTER, STELLA. STELLA REPORTS THAT SHE AND THE PT GO TO BED AROUND 1900, AND GET UP AROUND 1400.
[2022-12-14] MEDS: pantoprazole 40mg Tablet.DR PO SCH (17:17)
--- NOTE | 2022-12-14 18:19 | NUR ---
Problems reprioritized. Patient report given, questions answered & plan of care reviewed with JACKELYN, PAPER GUILLOTINE OPERATOR.
[2022-12-14] MEDS: ROSUVASTATIN CALCIUM 5 MG TABLET PO SCH (20:09)
[2022-12-15] VITALS (12 sets, daily range): BP systolic 105–125; BP diastolic 41–66; PULSE 72–84; RESP 16–22; TEMP 97.6–98.5; O2SAT 92–100
[2022-12-15] MEDS: normal saline 500ml IV soln 500 ML IV SCH ×3 (01:30→15:47)
--- NOTE | 2022-12-15 06:45 | NUR ---
Patient in room PCU 3012. I have received report from JACKELYN RN and had the opportunity to ask questions and assume patient care.
[2022-12-15] MEDS: CefTRIAXone/D5W-Rocephin 1gm 50 ML IV SCH (07:21)
[2022-12-15] MEDS: fluticasone nasal spray 16GM bottle NS SCH (07:21)
[2022-12-15] MEDS: docusate sod 100mg capsule PO SCH ×2 (07:22→19:38)
[2022-12-15] MEDS: furosemide 20 MG/2 ML vial IV SCH ×2 (07:22→19:37)
[2022-12-15] MEDS: heparin, porcine 5000 units/ml vial SQ SCH ×2 (07:22→19:37)
[2022-12-15] MEDS: diltiazem CD 120mg capsule (once-daily) PO SCH ×2 (07:22→19:37)
[2022-12-15] MEDS: allopurinol 100mg tablet PO SCH (07:23)
[2022-12-15] MEDS: pantoprazole 40mg Tablet.DR PO SCH (07:23)
[2022-12-15] MEDS: oxybutynin 5mg tablet PO SCH ×2 (07:23→19:38)
[2022-12-15] MEDS: levoTHYROXINE 25mcg tablet PO SCH (07:24)
[2022-12-15] MEDS: tamsulosin 0.4mg capsule PO SCH (07:24)
[2022-12-15] MEDS: aspirin 81mg, enteric-coated 1 TAB TABLET.DR PO SCH (07:24)
[2022-12-15] MEDS: cycloSPORINE 0.05% ophthalmic emulsion EACHEYE SCH ×2 (07:25→19:43)
[2022-12-15] MEDS: K and/or MAG REPLACEMENT MC SCH ×2 (08:00→19:38)
[2022-12-15 08:08] LABS: ALANINE AMINOTRANSFERASE 18 U/L (12-78); ALBUMIN 2.5 G/DL (3.4-5.0); ALBUMIN/GLOBULIN RATIO 0.6 (1.1-1.5); ALKALINE PHOSPHATASE 73 IU/L (46-116); ANION GAP 8 (8-16); ASPARTATE AMINO TRANSFERASE 17 U/L (10-37); BILIRUBIN,TOTAL 0.3 MG/DL (0.1-1.0); BLOOD UREA NITROGEN 19 MG/DL (7-18); BUN/CREATININE RATIO 16.5 (10.0-20.0); CHLORIDE 102 MMOL/L (99-107); CREATININE 1.15 MG/DL (0.40-0.90); GLUCOSE 114 MG/DL (70-104); PHOSPHORUS 2.1 MG/DL (2.3-4.5); POTASSIUM 3.6 MMOL/L (3.5-5.1); SODIUM 142 MMOL/L (135-145); TOTAL CARBON DIOXIDE 32.2 MMOL/L (24-32); TOTAL PROTEIN 6.5 G/DL (6.4-8.2); eCRCL 45 ML/MIN; eGFR 47 ML/MIN
[2022-12-15 08:22] LABS: BASOPHILS # (AUTO) 0.1 X10'3 (0-0.2); BASOPHILS % (AUTO) 0.4 % (0-1); EOSINOPHILS # (AUTO) 0.3 X10'3 (0-0.9); EOSINOPHILS % (AUTO) 1.9 % (0-6); HEMATOCRIT 33.6 % (35.0-45.0); HEMOGLOBIN 11.2 g/dl (12.0-16.0); LYMPHOCYTES # (AUTO) 1.3 X10'3 (1.1-4.8); LYMPHOCYTES % (AUTO) 9.2 % (21-51); MEAN CORPUSCULAR HEMOGLOBIN 30.9 PG (27.0-31.0); MEAN CORPUSCULAR HGB CONC 33.4 g/dL (33.0-36.5); MEAN CORPUSCULAR VOLUME 92.5 FL (78-98); MEAN PLATELET VOLUME 8.6 FL (7.4-10.4); MONOCYTES # (AUTO) 0.8 X10'3 (0-0.9); MONOCYTES % (AUTO) 5.9 % (2-12); NEUTROPHILS # (AUTO) 11.5 X10'3 (1.8-7.7); NEUTROPHILS % (AUTO) 82.6 % (42-75); PLATELET COUNT 208 X10'3 (140-440); RED BLOOD COUNT 3.63 X10'6 (4.20-5.60); RED CELL DISTRIBUTION WIDTH 15.3 % (11.5-14.5); WHITE BLOOD COUNT 13.9 X10'3 (4.5-11.0)
[2022-12-15 09:50] LABS: TOTAL CELLS COUNTED 100
[2022-12-15 09:52] LABS: ELLIPTOCYTES FEW; PLATELET ESTIMATE NORMAL; STOMATOCYTES FEW; TEAR DROP CELLS FEW
[2022-12-15] MEDS: HYDROcodone/acetaminophen 5mg/325mg tablet PO PRN (11:09)
[2022-12-15] MEDS: magnesium hydroxide 30ml (MOM) UD suspension PO PRN (13:34)
--- NOTE | 2022-12-15 18:30 | NUR ---
Patient in room PCU 3012. I have received report from Bertin HOLLINGSWORTH and had the opportunity to ask questions and assume patient care.
--- NOTE | 2022-12-15 18:32 | NUR ---
Problems reprioritized. Patient report given TO RUSTY HOLLINGSWORTH, questions answered & plan of care reviewed with .
[2022-12-15] MEDS: ondansetron/PF 4mg/2ml inj IV PRN (18:59)
[2022-12-15] MEDS: ROSUVASTATIN CALCIUM 5 MG TABLET PO SCH (19:40)
[2022-12-15] MEDS ORDERED: metoclopramide 5 mg/ml inj IV PRN (20:00)
[2022-12-16] VITALS (9 sets, daily range): BP systolic 98–122; BP diastolic 44–60; PULSE 70–88; RESP 12–24; TEMP 97.5–99.3; O2SAT 91–98
--- NOTE | 2022-12-16 04:20 | NUR ---
Lab draw from picc line
[2022-12-16] MEDS: HYDROcodone/acetaminophen 5mg/325mg tablet PO PRN (04:26)
[2022-12-16 04:45] LABS: BASOPHILS # (AUTO) 0.1 X10'3 (0-0.2); BASOPHILS % (AUTO) 0.6 % (0-1); EOSINOPHILS # (AUTO) 0.4 X10'3 (0-0.9); EOSINOPHILS % (AUTO) 2.9 % (0-6); HEMATOCRIT 31.5 % (35.0-45.0); HEMOGLOBIN 10.7 g/dl (12.0-16.0); LYMPHOCYTES # (AUTO) 1.9 X10'3 (1.1-4.8); MEAN CORPUSCULAR HEMOGLOBIN 30.7 PG (27.0-31.0); MEAN CORPUSCULAR HGB CONC 33.9 g/dL (33.0-36.5); MEAN CORPUSCULAR VOLUME 90.6 FL (78-98); MEAN PLATELET VOLUME 8.5 FL (7.4-10.4); MONOCYTES % (AUTO) 7.7 % (2-12); NEUTROPHILS # (AUTO) 9.2 X10'3 (1.8-7.7); NEUTROPHILS % (AUTO) 73.8 % (42-75); PLATELET COUNT 233 X10'3 (140-440); RED BLOOD COUNT 3.48 X10'6 (4.20-5.60); RED CELL DISTRIBUTION WIDTH 14.9 % (11.5-14.5); WHITE BLOOD COUNT 12.5 X10'3 (4.5-11.0)
[2022-12-16 05:01] LABS: ALANINE AMINOTRANSFERASE 25 U/L (12-78); ALBUMIN 2.3 G/DL (3.4-5.0); ALBUMIN/GLOBULIN RATIO 0.7 (1.1-1.5); ALKALINE PHOSPHATASE 64 IU/L (46-116); ANION GAP 2 (8-16); ASPARTATE AMINO TRANSFERASE 54 U/L (10-37); BILIRUBIN,TOTAL 0.3 MG/DL (0.1-1.0); BLOOD UREA NITROGEN 18 MG/DL (7-18); BUN/CREATININE RATIO 17.8 (10.0-20.0); CALCIUM 9.4 MG/DL (8.5-10.1); CHLORIDE 99 MMOL/L (99-107); CREATININE 1.01 MG/DL (0.40-0.90); GLUCOSE 135 MG/DL (70-104); POTASSIUM 3.2 MMOL/L (3.5-5.1); SODIUM 139 MMOL/L (135-145); TOTAL CARBON DIOXIDE 38.5 MMOL/L (24-32); TOTAL PROTEIN 5.7 G/DL (6.4-8.2); eCRCL 51 ML/MIN; eGFR 54 ML/MIN
[2022-12-16 05:18] LABS: TOTAL CELLS COUNTED 100
[2022-12-16 05:19] LABS: PLATELET ESTIMATE NORMAL
[2022-12-16 05:22] LABS: ELLIPTOCYTES FEW
[2022-12-16 05:24] LABS: SMUDGE CELLS FEW
[2022-12-16] MEDS ORDERED: potassium Cl 40MEQ/1/2NS 520ml 520 ML IV PRN ×2 (05:35)
[2022-12-16] MEDS ORDERED: potassium Cl 20 mEq SR tablet PO PRN (05:35)
[2022-12-16] MEDS: potassium Cl 20 mEq SR tablet PO PRN ×3 (05:59→14:41)
--- NOTE | 2022-12-16 06:43 | NUR ---
Problems reprioritized. Patient report given, questions answered & plan of care reviewed with Bertin HOLLINGSWORTH.
--- NOTE | 2022-12-16 06:47 | NUR ---
Patient in room PCU 3012. I have received report from RUSTY HOLLINGSWORTH and had the opportunity to ask questions and assume patient care.
[2022-12-16] MEDS: normal saline 500ml IV soln 500 ML IV SCH (07:30)
[2022-12-16] MEDS: tamsulosin 0.4mg capsule PO SCH (07:40)
[2022-12-16] MEDS: pantoprazole 40mg Tablet.DR PO SCH (07:40)
[2022-12-16] MEDS: diltiazem CD 120mg capsule (once-daily) PO SCH ×2 (07:40→19:39)
[2022-12-16] MEDS: fluticasone nasal spray 16GM bottle NS SCH (07:41)
[2022-12-16] MEDS: cycloSPORINE 0.05% ophthalmic emulsion EACHEYE SCH ×2 (07:41→19:41)
[2022-12-16] MEDS: allopurinol 100mg tablet PO SCH (07:41)
[2022-12-16] MEDS: levoTHYROXINE 25mcg tablet PO SCH (07:41)
[2022-12-16] MEDS: oxybutynin 5mg tablet PO SCH ×2 (07:41→19:39)
[2022-12-16] MEDS: aspirin 81mg, enteric-coated 1 TAB TABLET.DR PO SCH (07:41)
[2022-12-16] MEDS: docusate sod 100mg capsule PO SCH ×2 (07:41→19:39)
[2022-12-16] MEDS: heparin, porcine 5000 units/ml vial SQ SCH ×2 (07:42→19:40)
[2022-12-16] MEDS: furosemide 20 MG/2 ML vial IV SCH ×2 (07:42→19:40)
[2022-12-16] MEDS: CefTRIAXone/D5W-Rocephin 1gm 50 ML IV SCH (07:44)
[2022-12-16] MEDS: K and/or MAG REPLACEMENT MC SCH ×4 (08:00→19:48)
[2022-12-16] MEDS ORDERED: bisacodyl 10mg suppository rectal RC PRN (10:30)
--- NOTE | 2022-12-16 15:01 | NUR ---
F/u 12/16: Pt continues on heart healthy though not carbohydrate controlled restriction added; discussed with RN carbohydrate controlled not warranted given A1c of 6.2%. Pt PO intake appears to be improving with average ~69% x 8 meals though last 5 meals were 75%-100% intake. Pt met 94% of estimated kcal needs and 76% of estimated protein needs this follow. Since intake keeps improving, no nutrition intervention warranted at this time. LBM on 12/09 though receiving routine and PRN bowel care per EMR. Will continue to monitor. Recommendations: 1.continue heart heathy diet; monitor need to liberalize to regular as medically appropriate. carbohydrate controlled not warranted given A1c of 6.2% 2.monitor PO intake trend and need for additionally protein/ONS 3.routine bowel care 4.scaled wts;subsequent weekly scaled wt Addendum: 12/16/22 at [address] Amended: Links added.
--- NOTE | 2022-12-16 18:49 | NUR ---
Problems reprioritized. Patient report given TO YU HOLLINGSWORTH, questions answered & plan of care reviewed with .
[2022-12-16] MEDS: ondansetron/PF 4mg/2ml inj IV PRN (19:21)
[2022-12-16] MEDS: ROSUVASTATIN CALCIUM 5 MG TABLET PO SCH (20:59)
[2022-12-17 02:00] VITALS: BP 114/45; PULSE 77; RESP 20; TEMP 99.9; O2SAT 94
[2022-12-17 06:00] VITALS: BP 116/49; PULSE 81; RESP 21; TEMP 97.7; O2SAT 98
--- NOTE | 2022-12-17 06:48 | NUR ---
Problems reprioritized. Patient report given, questions answered & plan of care reviewed with Mandy
[2022-12-17] MEDS ORDERED: levoTHYROXINE 25mcg tablet PO SCH (06:53)
[2022-12-17 07:43] LABS: BASOPHILS # (AUTO) 0.1 X10'3 (0-0.2); BASOPHILS % (AUTO) 0.5 % (0-1); EOSINOPHILS # (AUTO) 0.4 X10'3 (0-0.9); EOSINOPHILS % (AUTO) 2.7 % (0-6); HEMATOCRIT 32.5 % (35.0-45.0); LYMPHOCYTES # (AUTO) 2.4 X10'3 (1.1-4.8); LYMPHOCYTES % (AUTO) 16.7 % (21-51); MEAN CORPUSCULAR HEMOGLOBIN 30.9 PG (27.0-31.0); MEAN CORPUSCULAR VOLUME 90.8 FL (78-98); MEAN PLATELET VOLUME 8.4 FL (7.4-10.4); MONOCYTES # (AUTO) 1.1 X10'3 (0-0.9); MONOCYTES % (AUTO) 7.5 % (2-12); NEUTROPHILS # (AUTO) 10.6 X10'3 (1.8-7.7); NEUTROPHILS % (AUTO) 72.6 % (42-75); PLATELET COUNT 253 X10'3 (140-440); RED BLOOD COUNT 3.58 X10'6 (4.20-5.60); RED CELL DISTRIBUTION WIDTH 14.7 % (11.5-14.5); WHITE BLOOD COUNT 14.6 X10'3 (4.5-11.0)
[2022-12-17 07:49] LABS: ALANINE AMINOTRANSFERASE 25 U/L (12-78); ALBUMIN 2.3 G/DL (3.4-5.0); ALBUMIN/GLOBULIN RATIO 0.6 (1.1-1.5); ALKALINE PHOSPHATASE 69 IU/L (46-116); ANION GAP 4 (8-16); ASPARTATE AMINO TRANSFERASE 28 U/L (10-37); BILIRUBIN,TOTAL 0.3 MG/DL (0.1-1.0); BLOOD UREA NITROGEN 19 MG/DL (7-18); BUN/CREATININE RATIO 17.9 (10.0-20.0); CALCIUM 9.3 MG/DL (8.5-10.1); CHLORIDE 97 MMOL/L (99-107); CREATININE 1.06 MG/DL (0.40-0.90); GLUCOSE 123 MG/DL (70-104); POTASSIUM 3.8 MMOL/L (3.5-5.1); SODIUM 137 MMOL/L (135-145); TOTAL CARBON DIOXIDE 35.8 MMOL/L (24-32); TOTAL PROTEIN 5.9 G/DL (6.4-8.2); eCRCL 49 ML/MIN; eGFR 51 ML/MIN
[2022-12-17 08:00] VITALS: RESP 17; O2SAT 93
[2022-12-17] MEDS: docusate sod 100mg capsule PO SCH (08:00)
[2022-12-17] MEDS: K and/or MAG REPLACEMENT MC SCH ×2 (08:00)
--- NOTE | 2022-12-17 09:37 | NUR ---
O2 Sat at rest on room air:_86__% If below 89%: Recovery O2 Sat at rest on __2_LPM:__93_%:___% via n/c (mask/nasal cannula, etc..) No further documentation is necessary. If O2 Sat did not drop below 89% on room air,ambulate patient on room air. O2 Sat while ambulating on room air:___% Recovery O2 Sat while ambulating on ___LPM:___% No further documentation is necessary. If patient does not drop below 89% while ambulating, he/she does not qualify for home O2.
[2022-12-17] MEDS: furosemide 20 MG/2 ML vial IV SCH (09:42)
[2022-12-17] MEDS: pantoprazole 40mg Tablet.DR PO SCH (09:42)
[2022-12-17] MEDS: cycloSPORINE 0.05% ophthalmic emulsion EACHEYE SCH (09:43)
[2022-12-17] MEDS: CefTRIAXone/D5W-Rocephin 1gm 50 ML IV SCH (09:43)
[2022-12-17] MEDS: diltiazem CD 120mg capsule (once-daily) PO SCH (09:45)
[2022-12-17] MEDS: tamsulosin 0.4mg capsule PO SCH (09:45)
[2022-12-17] MEDS: oxybutynin 5mg tablet PO SCH (09:45)
[2022-12-17] MEDS: fluticasone nasal spray 16GM bottle NS SCH (09:45)
[2022-12-17] MEDS: allopurinol 100mg tablet PO SCH (09:46)
[2022-12-17] MEDS: aspirin 81mg, enteric-coated 1 TAB TABLET.DR PO SCH (09:47)
[2022-12-17] MEDS: heparin, porcine 5000 units/ml vial SQ SCH (09:47)
[2022-12-17] MEDS ORDERED: CefTRIAXone 2gm/D5W 50ml BAG 50 ML IV SCH (10:30)
--- NOTE | 2022-12-17 10:58 | NUR ---
Called pharmacy regarding antibiotic dose increase. Pharmacist clarifying order.
[2022-12-17 11:00] VITALS: BP 116/65; PULSE 80; RESP 18; TEMP 98; O2SAT 92
--- NOTE | 2022-12-17 11:00 | NUR ---
Per CM pt. will leave today to [facility].
--- NOTE | 2022-12-17 12:50 | NUR ---
Spoke to the pharmacist about 2 gram Rocephin dose for the 3rd time. Apparently they are having a hard time reaching Dr. Brito to clarify order. Primary RN able to reach Dr. Brito and MD would like only a 1 gram once dose of Rocephin given in addition to wha was already given this morning and then for 2 grams of Rocephin to be administered from here on out. This information was given to the pharmacist who states he will fix the orders and bring up the IV Rocephin NANNETTE.
[2022-12-17] MEDS ORDERED: CefTRIAXone/D5W-Rocephin 1gm 50 ML IV ONE (12:55)
--- NOTE | 2022-12-17 16:18 | NUR ---
DISCHARGE NOTE: Pt. picked up by w/c by [facility] person to transfer to [facility]. Previously called report to Elodia ACEVES at [facility]. Pt. left with all of her belongings. Sister Annie jovita.
[2022-12-18] MEDS ORDERED: CefTRIAXone 2gm/D5W 50ml BAG 50 ML IV SCH (08:00)
== END 2022-12-17 16:20 | DRG 853 ==
LOC: ER 14:04 → ED HOLD 16:55 → PCU 3S 21:25 → PACU 12-11 16:00 → PCU 3S 12-11 16:30 → PACU 12-11 16:33 → PCU 3S 12-11 19:50
PROVIDERS: ADMIT Student in an Organized Health Care Education/Training Program; ATTEND Student in an Organized Health Care Education/Training Program
PROC: 0T778DZ Dilation of Left Ureter with Intraluminal Device, Via Natural or Artificial Opening Endoscopic (ICD-10-PCS; 2022-12-11)
PROC: 0TC78ZZ Extirpation of Matter from Left Ureter, Via Natural or Artificial Opening Endoscopic (ICD-10-PCS; principal; 2022-12-11 16:35)
PROC: 02HV33Z Insertion of Infusion Device into Superior Vena Cava, Percutaneous Approach (ICD-10-PCS; 2022-12-14)
DX: A41.9 Sepsis, unspecified organism (principal); I50.33 Acute on chronic diastolic (congestive) heart failure; N17.0 Acute kidney failure with tubular necrosis; N13.6 Pyonephrosis; J44.1 Chronic obstructive pulmonary disease with (acute) exacerbation; I13.0 Hypertensive heart and chronic kidney disease with heart failure and stage 1 through stage 4 chronic kidney disease, or unspecified chronic kidney disease; N17.9 Acute kidney failure, unspecified; N18.30 Chronic kidney disease, stage 3 unspecified; E03.9 Hypothyroidism, unspecified; M10.9 Gout, unspecified; R32 Unspecified urinary incontinence; K21.9 Gastro-esophageal reflux disease without esophagitis; I48.91 Unspecified atrial fibrillation; Z79.01 Long term (current) use of anticoagulants; Z88.5 Allergy status to narcotic agent; Z91.013 Allergy to seafood; Z88.2 Allergy status to sulfonamides; Z91.018 Allergy to other foods; Z79.82 Long term (current) use of aspirin; Z79.899 Other long term (current) drug therapy; Z87.442 Personal history of urinary calculi
CPT/HCPCS: 36415; 36569; 71045; 76000; 76700; 76942; 80048; 80053; 80061; 81001; 82948; 83036; 83605; 83735; 83880; 84100; 84132; 84145; 84439; 84443; 84484; 85007; 85025; 87040; 87070; 87077; 87081; 87088; 87186; 93005; 93306; 94640; 94760; 97116; 97161; 97530; 99285; A4314; A4615; A4618; A5200; A6250; A7000; C1751; C1769; C2617; G0378; J0692; J0696; J1100; J1644; J1815; J1940; J2175; J2405; J2704; J2765; J3010; J3490; J7030; J7040; J7120